=== PATIENT | male | born 1980 | race Caucasian/White ===

== ENCOUNTER → 2020-04-06 | Outpatient (CLI) | payer BC ==
[2020-04-06 14:06] LABS: BASOPHILS % (AUTO) 0 % (0-10); EOSINOPHILS % (AUTO) 0 % (0-10); HEMATOCRIT 49 % (40-54); HEMOGLOBIN 16.4 g/dL (13.3-17.7); LYMPHOCYTES # (AUTO) 1.7 10^3/uL (1.0-4.0); LYMPHOCYTES % (AUTO) 21 % (12-44); MEAN CORPUSCULAR HEMOGLOBIN 28 pg (25-34); MEAN CORPUSCULAR HGB CONC 34 g/dL (32-36); MEAN CORPUSCULAR VOLUME 84 fL (80-99); MEAN PLATELET VOLUME 8.5 fL (9.0-12.2); MONOCYTES # (AUTO) 0.6 10^3/uL (0.0-1.0); MONOCYTES % (AUTO) 8 % (0-12); NEUTROPHILS % (AUTO) 72 % (42-75); PLATELET COUNT 246 10^3/uL (130-400); WHITE BLOOD COUNT 8.4 10^3/uL (4.3-11.0)
[2020-04-06 14:19] LABS: LYMPHOCYTES % (MANUAL) 19 %; MONOCYTES % (MANUAL) 6 %; NEUTROPHILS % (MANUAL) 75 %; RBC MORPH NORMAL
[2020-04-06 14:28] LABS: ALANINE AMINOTRANSFERASE 33 U/L (0-55); ALBUMIN 4.2 GM/DL (3.2-4.5); ALKALINE PHOSPHATASE 83 U/L (40-136); BILIRUBIN,TOTAL 0.4 MG/DL (0.1-1.0); BUN/CREATININE RATIO 11; CARBON DIOXIDE 23 MMOL/L (21-32); CHLORIDE 104 MMOL/L (98-107); CREATININE SERUM 0.88 MG/DL (0.60-1.30); GFR ESTIMATED > 60; GLUCOSE 146 MG/DL (70-105); SODIUM 136 MMOL/L (135-145); TOTAL PROTEIN 7.6 GM/DL (6.4-8.2)
[2020-04-06 14:47] LABS: FIBRIN DEGRADATION PRODUCTS < 0.27 UG/ML (0.00-0.49); FIBRINOGEN 382 MG/DL (221-496)
== END ==
LOC: LAB 13:19
PROVIDERS: ATTEND Nurse Practitioner Family
DX: U07.1 COVID-19 (principal); M79.673 Pain in unspecified foot; R73.9 Hyperglycemia, unspecified
CPT/HCPCS: 36415; 80053; 83036; 83605; 83615; 83735; 85007; 85027; 85379; 85384; 86141

== ENCOUNTER → 2020-04-07 | Outpatient (CLI) | payer BC ==
[~2020-04-07] VITALS: Ht 185 cm; Wt 136.0 kg
[~2020-04-07] MED LIST: BAMLANIVIMAB (NON FORM) 700 MG in NS (IVPB) 250 ML IV ONE; EPINEPHrine INJECTION 1 MG/ML AMP IM PRN; diphenhydrAMINE 50 MG/ML INJ (BENADRYL) IV PRN
[2020-04-07 08:00] VITALS: BP 169/94
[2020-04-07 10:05] VITALS: BP 131/86
== END ==
LOC: INFUSION 08:07
PROVIDERS: ATTEND Nurse Practitioner Family
DX: U07.1 COVID-19 (principal); M79.671 Pain in right foot; R73.01 Impaired fasting glucose; E66.01 Morbid (severe) obesity due to excess calories; Z68.41 Body mass index [BMI] 40.0-44.9, adult

== ENCOUNTER 2021-01-25 20:26 | Emergency (ER) | payer BC ==
[~2021-01-25] VITALS: Ht 182.9 cm; Wt 124.7 kg
--- NOTE | 2021-01-25 21:28 | ED Upper Extremity ---
General Stated Complaint: L HAND LAC Source: patient (PANCHO SUAREZ) History of Present Illness Date Seen by Provider: Jan 25, 2021 Time Seen by Provider: 21:27 Initial Comments Patient with a laceration to his left dorsum hand. 1 hour ago patient was cutting [place] lights when his knife slipped resulting in a laceration. Mild bleeding. Normal active range of motion of the digits. Up-to-date his tetanus within the past 5 years. Denies of any distal numbness and tingling, nausea, vomiting, diarrhea fever, chills. Denies of any worsening pain. (PANCHO SUAREZ) Allergies and Home Medications Allergies Coded Allergies: No Known Drug Allergies (Unverified , 09/20/15) Patient Home Medication List Home Medication List Reviewed: Yes (GENE REGAN MD) Review of Systems Constitutional: No chills, No dizziness, No fever EENTM: No ear discharge, No ear pain, No blurred vision, No eye pain, No tearing Respiratory: No cough, No dyspnea on exertion, No short of breath Cardiovascular: No chest pain Gastrointestinal: No abdominal pain, No diarrhea, No nausea, No vomiting Genitourinary: No decreased output, No dysuria, No frequency Musculoskeletal: joint pain, muscle pain Skin: other (Laceration) (PANCHO SUAREZ) Past Xargqfz-Favvwo-Tyhzdu Hx Seasonal Allergies Seasonal Allergies: No (PANCHO SUAREZ) Past Medical History Reproductive Disorders: No Sexually Transmitted Disease: No (PANCHO SUAREZ) Physical Exam Vital Signs Vital Signs - First Documented 01/25/21 20:43 Temp 36.2 Pulse 90 Resp 18 B/P (MAP) 151/97 (115) Pulse Ox 95 O2 Delivery Room Air (GENE REGAN MD) Vital Signs Capillary Refill : (PANCHO SUAREZ) Height, Weight, BMI Height: 5'11" Weight: 270lbs. oz. 122.099604ec; BMI Method:Stated General Appearance: WD/WN, no apparent distress HEENT: PERRL/EOMI, normal ENT inspection, TMs normal, pharynx normal Neck: non-tender, full range of motion, supple Cardiovascular: regular rate, rhythm, no edema Respiratory: chest non-tender, lungs clear, normal breath sounds, no respiratory distress Gastrointestinal: normal bowel sounds, non tender, soft, no organomegaly Back: normal inspection, no CVA tenderness Hand: Left, laceration Skin: other (2 cm laceration to the left dorsal hand between the thumb and index finger. Mild adipose involvement. No muscular 10 involvement. Neurovascular intact.) (PANCHO SUAREZ) Procedures/Interventions Wound Location: Upper Extremities Other Wound Location left hand Wound Length (cm): 2 Wound's Depth, Shape: superficial, sub Q Wound Explored: clean Irrigated w/ Saline (ccs): 100 Betadine Prep?: Yes Anesthesia: 1% Lidocaine Volume Anesthetic (ccs): 5 Wound Debrided: none Suture: Ethlion Suture Size: 5-0 Number of Sutures: 7 Layer Closure?: 1 Sterile Dressing Applied?: Yes (PANCHO SUAREZ) Progress/Results/Core Measures Results/Orders Medications Given in ED Current Medications Medications Dose Ordered Sig/Charo Route Start Time Stop Time Status Last Admin Dose Admin Lidocaine HCl 20 ml ONCE ONCE INJ 01/25/21 21:30 01/25/21 21:31 DC 01/25/21 23:26 20 ML (GENE REGAN MD) Vital Signs/I&O 01/25/21 01/25/21 20:43 21:57 Temp 36.2 36.2 Pulse 90 90 Resp 18 18 B/P (MAP) 151/97 (115) 151/97 Pulse Ox 95 95 O2 Delivery Room Air Room Air (GENE REGAN MD) Departure Communication (Admissions) Patient with a laceration to his left dorsum hand. 7 Ethilon sutures were placed. Remove in 10 days. Extensive irrigation. Procedure documented note. Normal active range of motion of his left thumb and index finger. Neurovascular intact. Bleeding controlled. Suture in between the web of his left thumb and index finger. If any worsening symptoms such as redness, swelling to return back to ED for further evaluation. Recommend Neosporin. Discussed wound care. Up-to-date on his tetanus (PANCHO SUAREZ) Impression Primary Impression: LACERATION WITHOUT FOREIGN BODY OF LEFT HAND, INIT ENCNTR Disposition: 01 HOME, SELF-CARE Condition: Improved Departure-Patient Inst. Decision time for Depature: 21:48 (PANCHO SUAREZ) Referrals: AYSHA MOTT DO (PCP/Family) Primary Care Physician Patient Instructions: Laceration Repair With Stitches (DC) Add. Discharge Instructions: Remove sutures in 10 days. ATTENDING PHYSICIAN NOTE: I was physically present as attending physician in the emergency department during the care of this patient, but I was not directly involved in the decision making or delivery of care for this patient. (GENE REGAN MD) PANCHO SUAREZ Jan 25, 2021 21:28 GENE REGAN MD Jan 26, 2021 06:04
[2021-01-25] MEDS ORDERED: LIDOCAINE 1% INJ 20 ML 20 ML VIAL INJ ONE (21:30)
[2021-01-25 21:57] VITALS: BP 151/97
== END 2021-01-25 21:57 | disposition home or self-care (01) ==
LOC: EDUNIT# 20:26 → ER 20:28
DX: S61.412A Laceration without foreign body of left hand, initial encounter (principal); W26.0XXA Contact with knife, initial encounter

== ENCOUNTER 2021-02-04 21:05 | Emergency (ER) | payer BC ==
[2021-02-04 22:07] VITALS: BP 157/82
== END 2021-02-04 22:08 | disposition home or self-care (01) ==
LOC: EDUNIT# 21:05 → ER 21:06
DX: Z48.02 Encounter for removal of sutures (principal)